=== PATIENT | male | born 1995 | race Caucasian/White ===

== ENCOUNTER 2025-01-14 15:02 | Inpatient (IN) | payer OTHER ==
[2025-01-14] VITALS (7 sets, daily range): BP systolic 100–119; BP diastolic 63–76; PULSE 65–78; RESP 16–18; TEMP 97.7–98.6; O2SAT 100
[~2025-01-14] VITALS: Ht 167.6 cm; Wt 61.4 kg
[2025-01-14 16:06] LABS: PLATELET COUNT (AUTO) 41 K/uL (150-450); RED BLOOD CELL COUNT(AUTO) 1.73 MIL/uL (4.50-5.90); RED CELL DISTRIBUTION WIDTH 25.5 % (11.5-14.5); WHITE BLOOD COUNT (AUTO) 5.1 K/uL (4.5-11.0)
[2025-01-14] MEDS: SODIUM CHLORIDE 0.9% 1,000 ML IV ONE ×2 (16:07→20:30)
[2025-01-14 16:09] LABS: CALCIUM, TOTAL 9.0 mg/dL (8.8-10.5); CREATININE 0.72 mg/dL (0.60-1.30); GLOMERULAR FILTR. RATE CALC > 60 mL/min (>60); GLUCOSE,RANDOM 78 mg/dL (70-110); SODIUM SERUM 142 mmol/L (136-145); UREA NITROGEN, BLOOD 15 mg/dL (7-18)
[2025-01-14 16:33] LABS: PLATELET MORPHOLOGY COMMENT GIANT PLTS PRESENT; RBC MORPHOLOGY COMMENT ABNORMAL RBC MORPH
[2025-01-14] MEDS ORDERED: MAGNESIUM HYDROXIDE SUSPENSION 30 ML UDCUP PO PRN (20:15)
[2025-01-14] MEDS ORDERED: ZOLPIDEM TARTRATE 5 MG TABLET PO PRN (20:15)
[2025-01-14] MEDS ORDERED: ACETAMINOPHEN 325 MG TABLET PO PRN (20:15)
[2025-01-14] MEDS ORDERED: HYDROCODONE/ACETAMINOPHEN 5-325 MG TABLET PO PRN (20:15)
[2025-01-14] MEDS ORDERED: BISACODYL 10 MG RECTAL RECTAL SUPPOSITORY PR PRN (20:15)
[2025-01-14] MEDS ORDERED: ONDANSETRON HCL 4 MG/2 ML VIAL IVP PRN (20:15)
[2025-01-14] MEDS: DOCUSATE SODIUM 100 MG CAPSULE PO SCH (22:22)
[2025-01-14] MEDS: MORPHINE SULFATE 4 MG/ML SYRINGE IVP PRN (22:22)
[2025-01-14] MEDS ORDERED: FAMO20 PO (22:56)
[2025-01-14] MEDS ORDERED: SENN-376 PO (22:56)
[2025-01-14] MEDS ORDERED: HYDR500 PO (22:56)
[2025-01-14] MEDS ORDERED: INSREG SQ (22:56)
[2025-01-14] MEDS ORDERED: ACET1TAB97 PO (22:56)
[2025-01-14] MEDS ORDERED: FOLI-130 PO (22:56)
[2025-01-14] MEDS ORDERED: MELA5TAB21 PO (22:56)
[2025-01-14] MEDS ORDERED: BUPR-50 PO (22:56)
[2025-01-14] MEDS ORDERED: METF-1211 PO (22:56)
[2025-01-14] MEDS ORDERED: DEXTROSE 50%-WATER 25 GM/50 ML SYRINGE IVP PRN (23:00)
[2025-01-14] MEDS ORDERED: INSULIN LISPRO 100 UNITS/ML SQ PRN (23:00)
[2025-01-14] MEDS: HEPARIN SODIUM,PORCINE 5,000 UNITS/ML VIAL SQ SCH (23:44)
[2025-01-15 00:30] VITALS: BP_SYST 100; BP_SYST 97; BP_DIAS 65; BP_DIAS 74; PULSE 74; PULSE 77; RESP 18; TEMP 98.2; O2SAT 100; O2SAT 98
[2025-01-15 00:32] VITALS: BP 93/62; PULSE 68; RESP 18; O2SAT 100
[2025-01-15 01:06] VITALS: BP 105/75; PULSE 74; RESP 18; O2SAT 97
[2025-01-15 05:56] LABS: GLUCOSE,POINT OF CARE 75 MG/DL (70-110)
[2025-01-15 06:54] VITALS: BP 107/71; PULSE 73; RESP 18; TEMP 97.5; O2SAT 100
[2025-01-15 07:30] LABS: CALCIUM, TOTAL 8.9 mg/dL (8.8-10.5); CREATININE 0.52 mg/dL (0.60-1.30); GLOMERULAR FILTR. RATE CALC > 60 mL/min (>60); GLUCOSE,RANDOM 82 mg/dL (70-110); SODIUM SERUM 142 mmol/L (136-145); UREA NITROGEN, BLOOD 10 mg/dL (7-18)
[2025-01-15 07:33] LABS: PLATELET COUNT (AUTO) 28 K/uL (150-450); RED BLOOD CELL COUNT(AUTO) 2.07 MIL/uL (4.50-5.90); RED CELL DISTRIBUTION WIDTH 27.0 % (11.5-14.5); WHITE BLOOD COUNT (AUTO) 6.1 K/uL (4.5-11.0)
[2025-01-15 07:55] LABS: GLUCOSE,POINT OF CARE 71 MG/DL (70-110)
[2025-01-15] MEDS: PANTOPRAZOLE SODIUM 40 MG DR TABLET PO SCH (08:08)
[2025-01-15 08:28] VITALS: BP 96/56; PULSE 65; RESP 16; TEMP 98.1; O2SAT 96
[2025-01-15 08:51] LABS: RBC MORPHOLOGY COMMENT DIMORPHIC RBC
[2025-01-15] MEDS: SODIUM CHLORIDE 0.9% 1,000 ML IV ONE (10:21)
[2025-01-15 17:51] LABS: GLUCOSE,POINT OF CARE 80 MG/DL (70-110)
[2025-01-15 21:00] VITALS: BP 111/72; PULSE 60; RESP 18; TEMP 98; O2SAT 100
[2025-01-16 02:28] VITALS: BP 106/68; RESP 18; O2SAT 100
[2025-01-16 05:11] VITALS: BP 99/63; PULSE 54; RESP 17; TEMP 97.8; O2SAT 99
[2025-01-16 05:36] LABS: GLUCOSE,POINT OF CARE 106 MG/DL (70-110)
[2025-01-16 07:14] LABS: PLATELET COUNT (AUTO) 29 K/uL (150-450); RED BLOOD CELL COUNT(AUTO) 2.35 MIL/uL (4.50-5.90); RED CELL DISTRIBUTION WIDTH 26.6 % (11.5-14.5); WHITE BLOOD COUNT (AUTO) 5.8 K/uL (4.5-11.0)
[2025-01-16 07:17] LABS: RBC MORPHOLOGY COMMENT DIMORPHIC RBC
[2025-01-16 07:21] LABS: CALCIUM, TOTAL 9.4 mg/dL (8.8-10.5); CREATININE 0.51 mg/dL (0.60-1.30); GLOMERULAR FILTR. RATE CALC > 60 mL/min (>60); GLUCOSE,RANDOM 88 mg/dL (70-110); SODIUM SERUM 141 mmol/L (136-145); UREA NITROGEN, BLOOD 12 mg/dL (7-18)
[2025-01-16 07:38] VITALS: BP 93/69; PULSE 61; RESP 18; TEMP 97.7; O2SAT 98
[2025-01-16] MEDS: ETHYL ALCOHOL 62% ANTISEPTIC NASAL SANITIZER 0.6 ML AMPUL NASAL SCH (09:00)
[2025-01-16 11:31] LABS: GLUCOSE,POINT OF CARE 84 MG/DL (70-110)
[2025-01-16 17:15] LABS: GLUCOSE,POINT OF CARE 126 MG/DL (70-110)
== END 2025-01-16 16:30 | DRG 812 ==
LOC: EMS 15:02 → EDH 17:50 → CMPBEDREQ 21:04 → 4S 21:50
PROVIDERS: ADMIT Internal Medicine; ATTEND Internal Medicine
PROC: 30233N1 Transfusion of Nonautologous Red Blood Cells into Peripheral Vein, Percutaneous Approach (ICD-10-PCS; principal; 2025-01-14)
DX: D57.00 Hb-SS disease with crisis, unspecified (principal); E11.9 Type 2 diabetes mellitus without complications; F32.A Depression, unspecified; Z79.4 Long term (current) use of insulin; Z79.899 Other long term (current) drug therapy; Z91.0120 Allergy to eggs, unspecified
CPT/HCPCS: 71045; 80048; 82962; 85025; 85045; 86850; 86900; 86901; 86923; 87081; 93005; 96361; 96374; 96375; 96376; 99285; G0378; J1171; J1644; J2270; J7030; P9016; 36415-L1; 36415-TC